=== PATIENT | male | born 1960 | race African-American/Black ===

== ENCOUNTER 2021-11-09 07:20 | Emergency (ER) | payer BC ==
[2021-11-09] MEDS ORDERED: Ondansetron 4 MG Tab.DIS PO ONE (07:45)
[2021-11-09] MEDS ORDERED: Ketorolac 30 MG/ML SDV IM ONE (07:46)
[2021-11-09] MEDS ORDERED: Ondansetron 4 MG/2 ML SDV IVPUSH ONE (07:55)
[2021-11-09] MEDS ORDERED: Ketorolac 30 MG/ML SDV IVPUSH ONE (07:55)
[2021-11-09] MEDS ORDERED: Dextrose 5%-Lactated Ringers 1,000 ML IV SCH (08:00)
[2021-11-09 08:41] LABS: BLOOD UREA NITROGEN,BUN 13 mg/dL (7.0-18.0); CHLORIDE,CL 96 mmol/L (98-107); GLUCOSE RANDOM 138 mg/dL (74-106); LIPASE 160 U/L (73-393); POTASSIUM,K 3.8 mmol/L (3.5-5.1); SODIUM,NA 131 mmol/L (136-148)
[2021-11-09 10:29] VITALS: BP 116/74; PULSE 72
== END 2021-11-09 10:21 | disposition home or self-care (01) ==
LOC: MW.ED 07:20
DX: U07.1 COVID-19 (principal); J12.82 Pneumonia due to coronavirus disease 2019; E66.9 Obesity, unspecified; Z68.33 Body mass index [BMI] 33.0-33.9, adult
CPT/HCPCS: 36415; 71045; 80053; 83690; 84484; 85025; 87635; 93005; 96361; 96374; 96375; 99284; J1885; J2405; J7121; U0002

== ENCOUNTER 2021-11-09 23:09 | Inpatient (IN) | payer BC ==
[2021-11-09] MEDS ORDERED: Dexamethasone 10 MG/ML SDV IVPUSH SCH (23:45)
[2021-11-09] MEDS ORDERED: Acetaminophen 500 MG Tab PO ONE (23:56)
[2021-11-10 01:01] LABS: BLOOD UREA NITROGEN,BUN 10 mg/dL (7.0-18.0); CARBON DIOXIDE,CO2 27.5 mmol/L (21.0-32.0); CHLORIDE,CL 95 mmol/L (98-107); GLUCOSE RANDOM 129 mg/dL (74-106); POTASSIUM,K 3.9 mmol/L (3.5-5.1); SODIUM,NA 130 mmol/L (136-148)
[2021-11-10] MEDS: REMDESIVIR 200 MG in Sodium Chloride 0.9% 250 ML IV ONE ×2 (01:11→01:47)
[2021-11-10] MEDS ORDERED: Enoxaparin 40 MG/0.4 ML Syringe SUBCUT SCH (02:15)
[2021-11-10] MEDS ORDERED: Sodium Chloride 0.9% 1,000 ML IV SCH ×2 (03:00→19:45)
[2021-11-10] MEDS: Benzonatate 100 MG Cap PO PRN ×2 (05:18→12:39)
[2021-11-10 08:15] LABS: BLOOD UREA NITROGEN,BUN 11 mg/dL (7.0-18.0); CARBON DIOXIDE,CO2 28.7 mmol/L (21.0-32.0); CHLORIDE,CL 98 mmol/L (98-107); GLUCOSE RANDOM 177 mg/dL (74-106); SODIUM,NA 136 mmol/L (136-148)
[2021-11-10] MEDS: Enoxaparin 40 MG/0.4 ML Syringe SUBCUT SCH (08:27)
[2021-11-10] MEDS ORDERED: REMDESIVIR 100 MG in Sodium Chloride 0.9% 100 ML IV SCH (09:00)
[2021-11-10] MEDS ORDERED: Sodium Chloride 0.9% 1,000 ML IV ONE (10:01)
[2021-11-10] MEDS: Sodium Chloride 0.9% 1,000 ML IV SCH ×2 (12:38→19:15)
[2021-11-10] MEDS: Dexamethasone 4 MG Tab PO SCH (12:39)
[2021-11-10] MEDS: Albuterol/Ipratropium 4 GM Inhalation Spray INH PRN (16:08)
[2021-11-10] MEDS: Codeine/guaiFENesin 10-100 MG/5 ML Syrup 5 ML Cup PO PRN (18:14)
[2021-11-10] MEDS: REMDESIVIR 100 MG in Sodium Chloride 0.9% 100 ML IV SCH (20:21)
[2021-11-11 07:10] LABS: BLOOD UREA NITROGEN,BUN 13 mg/dL (7.0-18.0); CARBON DIOXIDE,CO2 25.3 mmol/L (21.0-32.0); CHLORIDE,CL 102 mmol/L (98-107); GLUCOSE RANDOM 131 mg/dL (74-106); POTASSIUM,K 3.9 mmol/L (3.5-5.1); SODIUM,NA 138 mmol/L (136-148)
[2021-11-11] MEDS: Enoxaparin 40 MG/0.4 ML Syringe SUBCUT SCH (08:05)
[2021-11-11] MEDS: Dexamethasone 4 MG Tab PO SCH (08:06)
[2021-11-11] MEDS ORDERED: Furosemide 40 MG/4 ML VIAL IVPUSH ONE (08:45)
[2021-11-11] MEDS: Sodium Chloride 0.9% 1,000 ML IV SCH ×2 (10:11→22:33)
[2021-11-11] MEDS ORDERED: Iopamidol 755 MG/ML 500 ML Multipack Bottle IVPUSH STA (13:57)
[2021-11-11] MEDS: REMDESIVIR 100 MG in Sodium Chloride 0.9% 100 ML IV SCH (20:49)
[2021-11-11] MEDS ORDERED: Acetaminophen 325 MG Tab PO PRN (21:23)
[2021-11-12 07:38] LABS: BLOOD UREA NITROGEN,BUN 14 mg/dL (7.0-18.0); CARBON DIOXIDE,CO2 26.3 mmol/L (21.0-32.0); CHLORIDE,CL 101 mmol/L (98-107); GLUCOSE RANDOM 134 mg/dL (74-106); POTASSIUM,K 3.5 mmol/L (3.5-5.1); SODIUM,NA 136 mmol/L (136-148)
[2021-11-12] MEDS: Enoxaparin 40 MG/0.4 ML Syringe SUBCUT SCH (08:19)
[2021-11-12] MEDS: Dexamethasone 4 MG Tab PO SCH (08:19)
[2021-11-12] MEDS: Pantoprazole 40 MG Tab.CR PO SCH (08:20)
[2021-11-12] MEDS: Sodium Chloride 0.9% 1,000 ML IV SCH (08:26)
[2021-11-12] MEDS: Ondansetron 4 MG/2 ML SDV IVPUSH PRN (08:31)
[2021-11-12] MEDS ORDERED: Furosemide 40 MG/4 ML VIAL IVPUSH ONE (11:16)
[2021-11-12] MEDS: REMDESIVIR 100 MG in Sodium Chloride 0.9% 100 ML IV SCH (20:17)
[2021-11-12] MEDS: Codeine/guaiFENesin 10-100 MG/5 ML Syrup 5 ML Cup PO PRN (20:20)
[2021-11-12] MEDS: Albuterol/Ipratropium 4 GM Inhalation Spray INH PRN (20:20)
[2021-11-13] MEDS: Ondansetron 4 MG/2 ML SDV IVPUSH PRN ×2 (03:22→09:00)
[2021-11-13] MEDS: Pantoprazole 40 MG Tab.CR PO SCH (06:33)
[2021-11-13] MEDS ORDERED: Promethazine 25 MG/ML SDV IM PRN (09:01)
[2021-11-13] MEDS: Enoxaparin 40 MG/0.4 ML Syringe SUBCUT SCH (09:16)
[2021-11-13 09:17] LABS: BLOOD UREA NITROGEN,BUN 16 mg/dL (7.0-18.0); CARBON DIOXIDE,CO2 31.3 mmol/L (21.0-32.0); CHLORIDE,CL 101 mmol/L (98-107); GLUCOSE RANDOM 122 mg/dL (74-106); POTASSIUM,K 3.7 mmol/L (3.5-5.1); SODIUM,NA 139 mmol/L (136-148)
[2021-11-13] MEDS: Dexamethasone 4 MG Tab PO SCH (09:17)
[2021-11-13] MEDS ORDERED: Furosemide 40 MG/4 ML VIAL IVPUSH ONE (11:00)
[2021-11-13] MEDS: Prochlorperazine 10 MG/2 ML SDV IVPUSH PRN (11:03)
[2021-11-13] MEDS: REMDESIVIR 100 MG in Sodium Chloride 0.9% 100 ML IV SCH (20:10)
[2021-11-13] MEDS: Albuterol/Ipratropium 4 GM Inhalation Spray INH PRN (20:29)
[2021-11-14] MEDS: Albuterol/Ipratropium 4 GM Inhalation Spray INH PRN ×3 (03:00→20:00)
[2021-11-14] MEDS: Pantoprazole 40 MG Tab.CR PO SCH (06:39)
[2021-11-14 07:41] LABS: BLOOD UREA NITROGEN,BUN 17 mg/dL (7.0-18.0); CARBON DIOXIDE,CO2 30.1 mmol/L (21.0-32.0); CHLORIDE,CL 98 mmol/L (98-107); GLUCOSE RANDOM 112 mg/dL (74-106); POTASSIUM,K 3.6 mmol/L (3.5-5.1); SODIUM,NA 138 mmol/L (136-148)
[2021-11-14] MEDS: Dexamethasone 4 MG Tab PO SCH (08:24)
[2021-11-14] MEDS: Enoxaparin 40 MG/0.4 ML Syringe SUBCUT SCH (08:24)
[2021-11-14] MEDS ORDERED: Aloe Vera/Sodium Chloride Gel 14.1 GM Tube NAS PRN (10:12)
[2021-11-15] MEDS: Albuterol/Ipratropium 4 GM Inhalation Spray INH PRN ×2 (02:03→09:52)
[2021-11-15] MEDS: Pantoprazole 40 MG Tab.CR PO SCH (06:40)
[2021-11-15] MEDS: Enoxaparin 40 MG/0.4 ML Syringe SUBCUT SCH (08:37)
[2021-11-15] MEDS: Dexamethasone 4 MG Tab PO SCH (08:37)
[2021-11-15 09:10] LABS: BLOOD UREA NITROGEN,BUN 18 mg/dL (7.0-18.0); CARBON DIOXIDE,CO2 29.3 mmol/L (21.0-32.0); CHLORIDE,CL 98 mmol/L (98-107); GLUCOSE RANDOM 120 mg/dL (74-106); POTASSIUM,K 3.7 mmol/L (3.5-5.1); SODIUM,NA 137 mmol/L (136-148)
[2021-11-15] MEDS ORDERED: Furosemide 40 MG/4 ML VIAL IVPUSH ONE (10:59)
[2021-11-15] MEDS ORDERED: LORazepam 2 MG/ML SDV IVPUSH ONE (11:14)
[2021-11-15] MEDS: Albuterol/Ipratropium 3.0-0.5 MG/3 ML Neb Soln NEB SCH ×3 (13:05→21:27)
[2021-11-16] MEDS: Albuterol/Ipratropium 3.0-0.5 MG/3 ML Neb Soln NEB SCH ×6 (02:05→21:30)
[2021-11-16 08:00] LABS: BLOOD UREA NITROGEN,BUN 20 mg/dL (7.0-18.0); CARBON DIOXIDE,CO2 32.7 mmol/L (21.0-32.0); CHLORIDE,CL 98 mmol/L (98-107); GLUCOSE RANDOM 133 mg/dL (74-106); POTASSIUM,K 3.6 mmol/L (3.5-5.1); SODIUM,NA 137 mmol/L (136-148)
[2021-11-16] MEDS: Enoxaparin 40 MG/0.4 ML Syringe SUBCUT SCH (08:07)
[2021-11-16] MEDS: Dexamethasone 4 MG Tab PO SCH (08:07)
[2021-11-16] MEDS: Pantoprazole 40 MG Tab.CR PO SCH (08:09)
[2021-11-16] MEDS ORDERED: Furosemide 40 MG/4 ML VIAL IVPUSH ONE (16:01)
[2021-11-16] MEDS ORDERED: Potassium Chloride 20 MEQ Tab.ER PO ONE (18:03)
[2021-11-17] MEDS: Albuterol/Ipratropium 3.0-0.5 MG/3 ML Neb Soln NEB SCH ×6 (01:01→21:45)
[2021-11-17 06:56] LABS: BLOOD UREA NITROGEN,BUN 24 mg/dL (7.0-18.0); CHLORIDE,CL 99 mmol/L (98-107); GLUCOSE RANDOM 141 mg/dL (74-106); SODIUM,NA 134 mmol/L (136-148)
[2021-11-17] MEDS: Dexamethasone 4 MG Tab PO SCH (08:05)
[2021-11-17] MEDS: Enoxaparin 40 MG/0.4 ML Syringe SUBCUT SCH (08:05)
[2021-11-17] MEDS: Pantoprazole 40 MG Tab.CR PO SCH (08:05)
[2021-11-17] MEDS: Levofloxacin/Dextrose 5%-Water 750 MG in Premix Bag 1 BAG IV SCH (08:06)
[2021-11-17] MEDS ORDERED: Polyethylene Glycol 3350 Powder 17 GM Packet PO PRN (12:25)
[2021-11-17] MEDS: Calcium Carbonate 500 MG Tab.Chew PO PRN (20:17)
[2021-11-17] MEDS ORDERED: Bisacodyl 10 MG Supp RECTAL ONE (20:30)
[2021-11-17] MEDS: Prochlorperazine 10 MG/2 ML SDV IVPUSH PRN (21:44)
[2021-11-17] MEDS: Morphine 2 MG/ML SYRINGE IVPUSH PRN (22:10)
[2021-11-17] MEDS: Sodium Chloride 0.65% Nasal Spray 45 ML Bottle NAS PRN (23:05)
[2021-11-18] MEDS: Morphine 2 MG/ML SYRINGE IVPUSH PRN (01:13)
[2021-11-18] MEDS: Albuterol/Ipratropium 3.0-0.5 MG/3 ML Neb Soln NEB SCH ×6 (01:36→21:04)
[2021-11-18] MEDS: Sodium Chloride 0.65% Nasal Spray 45 ML Bottle NAS PRN ×2 (05:45→16:00)
[2021-11-18] MEDS: Pantoprazole 40 MG Tab.CR PO SCH (06:30)
[2021-11-18 08:03] LABS: BLOOD UREA NITROGEN,BUN 21 mg/dL (7.0-18.0); CARBON DIOXIDE,CO2 31.6 mmol/L (21.0-32.0); CHLORIDE,CL 97 mmol/L (98-107); GLUCOSE RANDOM 141 mg/dL (74-106); POTASSIUM,K 4.6 mmol/L (3.5-5.1); SODIUM,NA 137 mmol/L (136-148)
[2021-11-18] MEDS: Levofloxacin/Dextrose 5%-Water 750 MG in Premix Bag 1 BAG IV SCH (08:31)
[2021-11-18] MEDS: Enoxaparin 40 MG/0.4 ML Syringe SUBCUT SCH (08:33)
[2021-11-18] MEDS: Dexamethasone 4 MG Tab PO SCH (08:33)
[2021-11-18] MEDS: Benzonatate 100 MG Cap PO PRN ×3 (09:05→21:04)
[2021-11-18] MEDS ORDERED: Bisacodyl 10 MG Supp RECTAL PRN (09:15)
[2021-11-18] MEDS ORDERED: Furosemide 40 MG/4 ML VIAL IVPUSH ONE (09:22)
[2021-11-18] MEDS ORDERED: Magnesium Citrate Solution 296 ML Bottle PO ONE (13:15)
[2021-11-18] MEDS: Codeine/guaiFENesin 10-100 MG/5 ML Syrup 5 ML Cup PO PRN (18:00)
[2021-11-18] MEDS: Calcium Carbonate 500 MG Tab.Chew PO PRN (20:09)
[2021-11-19] MEDS: Codeine/guaiFENesin 10-100 MG/5 ML Syrup 5 ML Cup PO PRN ×2 (00:18→06:15)
[2021-11-19] MEDS: Albuterol/Ipratropium 3.0-0.5 MG/3 ML Neb Soln NEB SCH ×6 (01:00→20:59)
[2021-11-19] MEDS: Benzonatate 100 MG Cap PO PRN ×4 (03:17→21:00)
[2021-11-19] MEDS: Pantoprazole 40 MG Tab.CR PO SCH (06:31)
[2021-11-19 07:07] LABS: BLOOD UREA NITROGEN,BUN 24 mg/dL (7.0-18.0); CARBON DIOXIDE,CO2 31.7 mmol/L (21.0-32.0); CHLORIDE,CL 99 mmol/L (98-107); GLUCOSE RANDOM 117 mg/dL (74-106); POTASSIUM,K 4.5 mmol/L (3.5-5.1); SODIUM,NA 136 mmol/L (136-148)
[2021-11-19] MEDS: Sodium Chloride 0.65% Nasal Spray 45 ML Bottle NAS PRN ×2 (07:08→13:20)
[2021-11-19] MEDS: Docusate Sodium 100 MG Cap PO SCH (08:20)
[2021-11-19] MEDS: Levofloxacin/Dextrose 5%-Water 750 MG in Premix Bag 1 BAG IV SCH (08:20)
[2021-11-19] MEDS: Dexamethasone 4 MG Tab PO SCH (08:20)
[2021-11-19] MEDS: Enoxaparin 40 MG/0.4 ML Syringe SUBCUT SCH (08:20)
[2021-11-19] MEDS ORDERED: Furosemide 40 MG/4 ML VIAL IVPUSH ONE (08:42)
[2021-11-19] MEDS: Calcium Carbonate 500 MG Tab.Chew PO PRN (22:06)
[2021-11-20] MEDS: Albuterol/Ipratropium 3.0-0.5 MG/3 ML Neb Soln NEB SCH ×6 (01:31→21:21)
[2021-11-20] MEDS: Benzonatate 100 MG Cap PO PRN ×2 (06:21→13:04)
[2021-11-20] MEDS: Pantoprazole 40 MG Tab.CR PO SCH (06:38)
[2021-11-20 07:38] LABS: BLOOD UREA NITROGEN,BUN 25 mg/dL (7.0-18.0); CARBON DIOXIDE,CO2 32.1 mmol/L (21.0-32.0); CHLORIDE,CL 100 mmol/L (98-107); GLUCOSE RANDOM 137 mg/dL (74-106); POTASSIUM,K 4.8 mmol/L (3.5-5.1); SODIUM,NA 136 mmol/L (136-148)
[2021-11-20] MEDS: Enoxaparin 40 MG/0.4 ML Syringe SUBCUT SCH (09:06)
[2021-11-20] MEDS: Levofloxacin/Dextrose 5%-Water 750 MG in Premix Bag 1 BAG IV SCH (09:06)
[2021-11-20] MEDS: Docusate Sodium 100 MG Cap PO SCH (09:07)
[2021-11-20] MEDS: Calcium Carbonate 500 MG Tab.Chew PO PRN (19:42)
[2021-11-21] MEDS: Albuterol/Ipratropium 3.0-0.5 MG/3 ML Neb Soln NEB SCH ×6 (02:01→21:25)
[2021-11-21] MEDS: Pantoprazole 40 MG Tab.CR PO SCH (06:30)
[2021-11-21 06:54] LABS: BLOOD UREA NITROGEN,BUN 22 mg/dL (7.0-18.0); CARBON DIOXIDE,CO2 28.8 mmol/L (21.0-32.0); CHLORIDE,CL 100 mmol/L (98-107); GLUCOSE RANDOM 128 mg/dL (74-106); POTASSIUM,K 4.6 mmol/L (3.5-5.1); SODIUM,NA 135 mmol/L (136-148)
[2021-11-21] MEDS: Docusate Sodium 100 MG Cap PO SCH (09:03)
[2021-11-21] MEDS: Levofloxacin/Dextrose 5%-Water 750 MG in Premix Bag 1 BAG IV SCH (09:05)
[2021-11-21] MEDS: Enoxaparin 40 MG/0.4 ML Syringe SUBCUT SCH (09:16)
[2021-11-21] MEDS: Calcium Carbonate 500 MG Tab.Chew PO PRN (17:28)
[2021-11-21] MEDS: Benzonatate 100 MG Cap PO PRN (19:45)
[2021-11-22] MEDS: Albuterol/Ipratropium 3.0-0.5 MG/3 ML Neb Soln NEB SCH ×6 (02:49→22:16)
[2021-11-22] MEDS: Pantoprazole 40 MG Tab.CR PO SCH (06:33)
[2021-11-22 06:46] LABS: BLOOD UREA NITROGEN,BUN 18 mg/dL (7.0-18.0); CARBON DIOXIDE,CO2 28.3 mmol/L (21.0-32.0); CHLORIDE,CL 99 mmol/L (98-107); GLUCOSE RANDOM 140 mg/dL (74-106); POTASSIUM,K 4.7 mmol/L (3.5-5.1); SODIUM,NA 135 mmol/L (136-148)
[2021-11-22] MEDS: Docusate Sodium 100 MG Cap PO SCH (08:22)
[2021-11-22] MEDS: Enoxaparin 40 MG/0.4 ML Syringe SUBCUT SCH (08:23)
[2021-11-22] MEDS: Levofloxacin/Dextrose 5%-Water 750 MG in Premix Bag 1 BAG IV SCH (08:23)
[2021-11-22] MEDS ORDERED: Furosemide 40 MG/4 ML VIAL IVPUSH ONE (09:55)
[2021-11-22] MEDS: Benzonatate 100 MG Cap PO PRN ×2 (10:43→16:41)
[2021-11-22] MEDS: Codeine/guaiFENesin 10-100 MG/5 ML Syrup 5 ML Cup PO PRN ×2 (14:07→19:52)
[2021-11-23] MEDS: Albuterol/Ipratropium 3.0-0.5 MG/3 ML Neb Soln NEB SCH ×6 (02:19→21:59)
[2021-11-23] MEDS: Benzonatate 100 MG Cap PO PRN ×3 (05:32→21:09)
[2021-11-23] MEDS: Pantoprazole 40 MG Tab.CR PO SCH (06:57)
[2021-11-23 07:58] LABS: BLOOD UREA NITROGEN,BUN 19 mg/dL (7.0-18.0); CHLORIDE,CL 98 mmol/L (98-107); GLUCOSE RANDOM 125 mg/dL (74-106); POTASSIUM,K 4.4 mmol/L (3.5-5.1); SODIUM,NA 136 mmol/L (136-148)
[2021-11-23] MEDS: Docusate Sodium 100 MG Cap PO SCH (08:46)
[2021-11-23] MEDS: Codeine/guaiFENesin 10-100 MG/5 ML Syrup 5 ML Cup PO PRN (08:46)
[2021-11-23] MEDS: Levofloxacin/Dextrose 5%-Water 750 MG in Premix Bag 1 BAG IV SCH (08:46)
[2021-11-23] MEDS: Enoxaparin 40 MG/0.4 ML Syringe SUBCUT SCH (08:47)
[2021-11-23] MEDS: Cyclobenzaprine 10 MG Tab PO PRN (10:36)
[2021-11-24] MEDS: Albuterol/Ipratropium 3.0-0.5 MG/3 ML Neb Soln NEB SCH ×6 (02:13→22:09)
[2021-11-24] MEDS: Pantoprazole 40 MG Tab.CR PO SCH (06:48)
[2021-11-24 07:44] LABS: BLOOD UREA NITROGEN,BUN 17 mg/dL (7.0-18.0); CHLORIDE,CL 98 mmol/L (98-107); GLUCOSE RANDOM 126 mg/dL (74-106); POTASSIUM,K 4.7 mmol/L (3.5-5.1); SODIUM,NA 135 mmol/L (136-148)
[2021-11-24] MEDS: Benzonatate 100 MG Cap PO PRN ×2 (08:09→14:33)
[2021-11-24] MEDS: Docusate Sodium 100 MG Cap PO SCH (08:09)
[2021-11-24] MEDS: Levofloxacin/Dextrose 5%-Water 750 MG in Premix Bag 1 BAG IV SCH (08:10)
[2021-11-24] MEDS: Enoxaparin 40 MG/0.4 ML Syringe SUBCUT SCH (08:10)
[2021-11-24] MEDS: Codeine/guaiFENesin 10-100 MG/5 ML Syrup 5 ML Cup PO PRN (11:46)
[2021-11-25] MEDS ORDERED: Sodium Chloride 0.65% Nasal Spray 45 ML Bottle NAS PRN (00:24)
[2021-11-25] MEDS: Albuterol/Ipratropium 3.0-0.5 MG/3 ML Neb Soln NEB SCH ×6 (01:58→21:02)
[2021-11-25 06:17] LABS: BLOOD UREA NITROGEN,BUN 18 mg/dL (7.0-18.0); CARBON DIOXIDE,CO2 25.7 mmol/L (21.0-32.0); CHLORIDE,CL 100 mmol/L (98-107); GLUCOSE RANDOM 130 mg/dL (74-106); POTASSIUM,K 4.6 mmol/L (3.5-5.1); SODIUM,NA 134 mmol/L (136-148)
[2021-11-25] MEDS: Pantoprazole 40 MG Tab.CR PO SCH ×2 (06:28→06:53)
[2021-11-25] MEDS: Enoxaparin 40 MG/0.4 ML Syringe SUBCUT SCH (08:26)
[2021-11-25] MEDS: Docusate Sodium 100 MG Cap PO SCH (08:27)
[2021-11-25] MEDS: Levofloxacin/Dextrose 5%-Water 750 MG in Premix Bag 1 BAG IV SCH (08:52)
[2021-11-25] MEDS: Benzonatate 100 MG Cap PO PRN ×2 (10:58→21:00)
[2021-11-25] MEDS: Calcium Carbonate 500 MG Tab.Chew PO PRN (20:36)
[2021-11-26] MEDS: Albuterol/Ipratropium 3.0-0.5 MG/3 ML Neb Soln NEB SCH ×7 (01:03→22:06)
[2021-11-26] MEDS: Benzonatate 100 MG Cap PO PRN (05:28)
[2021-11-26] MEDS: Pantoprazole 40 MG Tab.CR PO SCH (06:30)
[2021-11-26 07:04] LABS: BLOOD UREA NITROGEN,BUN 12 mg/dL (7.0-18.0); CARBON DIOXIDE,CO2 27.8 mmol/L (21.0-32.0); CHLORIDE,CL 99 mmol/L (98-107); GLUCOSE RANDOM 130 mg/dL (74-106); POTASSIUM,K 4.6 mmol/L (3.5-5.1); SODIUM,NA 134 mmol/L (136-148)
[2021-11-26] MEDS: Docusate Sodium 100 MG Cap PO SCH (08:32)
[2021-11-26] MEDS: Enoxaparin 40 MG/0.4 ML Syringe SUBCUT SCH (08:33)
[2021-11-26] MEDS: Cyclobenzaprine 10 MG Tab PO PRN (10:52)
[2021-11-27] MEDS: Albuterol/Ipratropium 3.0-0.5 MG/3 ML Neb Soln NEB SCH ×6 (02:17→21:15)
[2021-11-27] MEDS: Pantoprazole 40 MG Tab.CR PO SCH (06:36)
[2021-11-27] MEDS: Codeine/guaiFENesin 10-100 MG/5 ML Syrup 5 ML Cup PO PRN ×2 (09:32→18:45)
[2021-11-27] MEDS: Docusate Sodium 100 MG Cap PO SCH (09:55)
[2021-11-27] MEDS: Enoxaparin 40 MG/0.4 ML Syringe SUBCUT SCH (09:55)
[2021-11-27] MEDS: Cyclobenzaprine 10 MG Tab PO PRN (11:14)
[2021-11-27] MEDS ORDERED: LORazepam 0.5 MG Tab PO PRN (11:16)
[2021-11-27] MEDS: Benzonatate 100 MG Cap PO PRN ×2 (11:33→21:54)
[2021-11-27] MEDS: Ondansetron 4 MG/2 ML SDV IVPUSH PRN (18:45)
[2021-11-28] MEDS: Albuterol/Ipratropium 3.0-0.5 MG/3 ML Neb Soln NEB SCH ×6 (01:56→21:00)
[2021-11-28] MEDS: Pantoprazole 40 MG Tab.CR PO SCH (06:56)
[2021-11-28] MEDS: Benzonatate 100 MG Cap PO PRN (10:19)
[2021-11-28] MEDS: Enoxaparin 40 MG/0.4 ML Syringe SUBCUT SCH (10:19)
[2021-11-28] MEDS: Docusate Sodium 100 MG Cap PO SCH (10:19)
[2021-11-28] MEDS ORDERED: Furosemide 20 MG/2 ML VIAL IVPUSH ONE (11:00)
[2021-11-28] MEDS: Codeine/guaiFENesin 10-100 MG/5 ML Syrup 5 ML Cup PO PRN ×2 (12:58→20:53)
[2021-11-28] MEDS: LORazepam 0.5 MG Tab PO PRN (20:54)
[2021-11-28] MEDS: Calcium Carbonate 500 MG Tab.Chew PO PRN (20:54)
[2021-11-28] MEDS: Cyclobenzaprine 10 MG Tab PO PRN (21:20)
[2021-11-29] MEDS: Albuterol/Ipratropium 3.0-0.5 MG/3 ML Neb Soln NEB SCH ×7 (02:20→21:34)
[2021-11-29 06:17] LABS: BLOOD UREA NITROGEN,BUN 14 mg/dL (7.0-18.0); CARBON DIOXIDE,CO2 26.2 mmol/L (21.0-32.0); CHLORIDE,CL 96 mmol/L (98-107); GLUCOSE RANDOM 138 mg/dL (74-106); POTASSIUM,K 4.5 mmol/L (3.5-5.1); SODIUM,NA 132 mmol/L (136-148)
[2021-11-29] MEDS: Pantoprazole 40 MG Tab.CR PO SCH (06:35)
[2021-11-29] MEDS: Enoxaparin 40 MG/0.4 ML Syringe SUBCUT SCH (10:03)
[2021-11-29] MEDS: Codeine/Promethazine 10-6.25 MG/5 ML Syrup 5 ML UD Syringe PO PRN ×2 (10:08→19:37)
[2021-11-29] MEDS: Docusate Sodium 100 MG Cap PO SCH (10:09)
[2021-11-29] MEDS: Apixaban 5 MG Tab PO SCH ×2 (10:25→21:35)
[2021-11-29] MEDS: Cyclobenzaprine 10 MG Tab PO PRN (11:19)
[2021-11-29] MEDS: LORazepam 0.5 MG Tab PO PRN ×2 (11:42→19:36)
[2021-11-29] MEDS ORDERED: Iopamidol 755 MG/ML 500 ML Multipack Bottle IVPUSH ONE (13:03)
[2021-11-30] MEDS: Albuterol/Ipratropium 3.0-0.5 MG/3 ML Neb Soln NEB SCH ×6 (01:30→21:04)
[2021-11-30 06:51] LABS: BLOOD UREA NITROGEN,BUN 9 mg/dL (7.0-18.0); CARBON DIOXIDE,CO2 29.4 mmol/L (21.0-32.0); CHLORIDE,CL 94 mmol/L (98-107); GLUCOSE RANDOM 128 mg/dL (74-106); POTASSIUM,K 4.9 mmol/L (3.5-5.1); SODIUM,NA 131 mmol/L (136-148)
[2021-11-30] MEDS: Pantoprazole 40 MG Tab.CR PO SCH (06:51)
[2021-11-30] MEDS: Codeine/Promethazine 10-6.25 MG/5 ML Syrup 5 ML UD Syringe PO PRN ×3 (09:02→20:05)
[2021-11-30] MEDS: Docusate Sodium 100 MG Cap PO SCH (09:02)
[2021-11-30] MEDS: Apixaban 5 MG Tab PO SCH ×2 (09:02→20:05)
[2021-11-30] MEDS: LORazepam 0.5 MG Tab PO PRN ×2 (09:57→20:28)
[2021-11-30] MEDS: Benzonatate 100 MG Cap PO PRN ×2 (17:07→23:29)
[2021-11-30] MEDS ORDERED: guaiFENesin 100 MG/5 ML Soln 10 ML UD Cup PO PRN (23:55)
[2021-12-01] MEDS: Albuterol/Ipratropium 3.0-0.5 MG/3 ML Neb Soln NEB SCH ×6 (01:34→21:10)
[2021-12-01] MEDS: Codeine/Promethazine 10-6.25 MG/5 ML Syrup 5 ML UD Syringe PO PRN ×4 (03:30→23:38)
[2021-12-01] MEDS: Benzonatate 100 MG Cap PO PRN ×3 (05:20→19:52)
[2021-12-01 06:16] LABS: BLOOD UREA NITROGEN,BUN 13 mg/dL (7.0-18.0); CARBON DIOXIDE,CO2 28.7 mmol/L (21.0-32.0); CHLORIDE,CL 92 mmol/L (98-107); GLUCOSE RANDOM 141 mg/dL (74-106); POTASSIUM,K 5.4 mmol/L (3.5-5.1); SODIUM,NA 131 mmol/L (136-148)
[2021-12-01] MEDS: Pantoprazole 40 MG Tab.CR PO SCH (06:43)
[2021-12-01] MEDS: Apixaban 5 MG Tab PO SCH ×2 (08:58→20:23)
[2021-12-01] MEDS: Docusate Sodium 100 MG Cap PO SCH (08:58)
[2021-12-01] MEDS ORDERED: Furosemide 20 MG/2 ML VIAL IVPUSH ONE (10:06)
[2021-12-01] MEDS: methylPREDNISolone Sodium Succinate 40 MG/1 ML SDV IVPUSH SCH ×2 (10:43→18:06)
[2021-12-01] MEDS ORDERED: LORazepam 2 MG/ML SDV IVPUSH PRN (15:19)
[2021-12-02] MEDS: Albuterol/Ipratropium 3.0-0.5 MG/3 ML Neb Soln NEB SCH ×3 (02:03→10:25)
[2021-12-02] MEDS: methylPREDNISolone Sodium Succinate 40 MG/1 ML SDV IVPUSH SCH ×2 (02:03→10:25)
[2021-12-02 06:10] LABS: BLOOD UREA NITROGEN,BUN 27 mg/dL (7.0-18.0); CHLORIDE,CL 95 mmol/L (98-107); GLUCOSE RANDOM 242 mg/dL (74-106); POTASSIUM,K 5.1 mmol/L (3.5-5.1); SODIUM,NA 130 mmol/L (136-148)
[2021-12-02] MEDS: Codeine/Promethazine 10-6.25 MG/5 ML Syrup 5 ML UD Syringe PO PRN (08:07)
[2021-12-02] MEDS: Benzonatate 100 MG Cap PO PRN (08:07)
[2021-12-02] MEDS: Pantoprazole 40 MG Tab.CR PO SCH (08:08)
[2021-12-02] MEDS: Docusate Sodium 100 MG Cap PO SCH (08:08)
[2021-12-02] MEDS: Apixaban 5 MG Tab PO SCH (08:08)
[2021-12-02] MEDS ORDERED: guaiFENesin 100 MG/5 ML Soln 5 ML UD Cup PO PRN (10:30)
[2021-12-02] MEDS ORDERED: LORazepam 2 MG/ML SDV IVPUSH ONE (10:31)
[2021-12-02] MEDS ORDERED: Glucagon,Human Recombinant 1 MG Vial IM PRN (10:55)
[2021-12-02] MEDS ORDERED: 50% Dextrose in Water 50 ML Syringe IVPUSH PRN (10:55)
[2021-12-02] MEDS ORDERED: Insulin Aspart 100 Units/ML 3 ML Pen SUBCUT SCH (11:30)
[2021-12-02] MEDS ORDERED: propofoL 100 ML ONE (11:48)
[2021-12-02] MEDS ORDERED: fentaNYL/Normal Saline 2,500 MCG in Premix Bag 1 BAG IV PRN (11:49)
[2021-12-02] MEDS ORDERED: propofoL 100 ML IV SCH (12:00)
[2021-12-02 15:10] VITALS: BP 107/58; PULSE 80
[2021-12-06] MEDS ORDERED: Apixaban 5 MG Tab PO SCH (09:00)
== END 2021-12-02 14:20 | DRG 137 ==
LOC: MW.ED 23:09 → INTOOBSV 23:57 → MW.MS 23:57 → MW.ICU 11-12 12:15 → MW.MS 11-20 16:09 → OBSVTOIN 11-30 15:00 → MW.ICU 11-30 15:27
PROVIDERS: ADMIT Internal Medicine; ATTEND Internal Medicine
PROC: 8E0ZXY6 Isolation (ICD-10-PCS; 2021-11-30)
PROC: 02HV33Z Insertion of Infusion Device into Superior Vena Cava, Percutaneous Approach (ICD-10-PCS; principal; 2021-12-02)
PROC: 03HY32Z Insertion of Monitoring Device into Upper Artery, Percutaneous Approach (ICD-10-PCS; 2021-12-02)
PROC: 4A133B1 Monitoring of Arterial Pressure, Peripheral, Percutaneous Approach (ICD-10-PCS; 2021-12-02)
PROC: 4A133J1 Monitoring of Arterial Pulse, Peripheral, Percutaneous Approach (ICD-10-PCS; 2021-12-02)
DX: U07.1 COVID-19 (principal); J96.01 Acute respiratory failure with hypoxia; I26.99 Other pulmonary embolism without acute cor pulmonale; F41.9 Anxiety disorder, unspecified; M62.82 Rhabdomyolysis; R00.0 Tachycardia, unspecified; F41.0 Panic disorder [episodic paroxysmal anxiety]; H54.7 Unspecified visual loss; E66.9 Obesity, unspecified; Z86.16 Personal history of COVID-19; J12.82 Pneumonia due to coronavirus disease 2019; N17.9 Acute kidney failure, unspecified; E86.0 Dehydration; M60.80 Other myositis, unspecified site; K59.00 Constipation, unspecified
CPT/HCPCS: 31500; 36415; 36556; 36600; 36620; 51702; 71045; 71045-26; 71275; 71275-26; 74018; 74018-26; 80048; 80053; 82248; 82306; 82550; 82728; 82803; 82947; 83605; 83615; 83735; 83880; 84100; 84145; 84484; 85025; 85027; 85379; 85610; 85730; 86140; 93005; 93306; 94002; 94640; 94660; 97110-GP; 97161-GP; 99285-25; A9270-GY; J0248; J0780; J1100; J1650; J1815-GY; J1940; J1956; J2060; J2270; J2405; J2704; J2920; J7030; J7050; J7620-GY; J8540; Q9967

== ENCOUNTER 2021-12-27 13:41 | Observation (INO) | payer BC ==
[2021-12-27] MEDS ORDERED: Sodium Chloride 0.9% 2.5 ML Syringe FLUSH PRN (14:48)
[2021-12-27] MEDS ORDERED: Sodium Chloride 0.9% 10 ML Syringe FLUSH PRN (14:48)
[2021-12-27 15:32] LABS: BLOOD UREA NITROGEN,BUN 15 mg/dL (7.0-18.0); CARBON DIOXIDE,CO2 29.8 mmol/L (21.0-32.0); CHLORIDE,CL 106 mmol/L (98-107); ESTIMATED GFR > 60.0 ml/min; GLUCOSE RANDOM 212 mg/dL (74-106); POTASSIUM,K 3.3 mmol/L (3.5-5.1); SODIUM,NA 144 mmol/L (136-148)
[2021-12-27] MEDS ORDERED: Iopamidol 755 MG/ML 500 ML Multipack Bottle IVPUSH ONE (16:26)
[2021-12-27] MEDS ORDERED: Albuterol/Ipratropium 3.0-0.5 MG/3 ML Neb Soln NEB PRN (20:11)
[2021-12-27] MEDS ORDERED: Ondansetron 4 MG/2 ML SDV IVPUSH PRN (20:11)
[2021-12-27] MEDS ORDERED: Acetaminophen 325 MG Tab PO PRN (20:11)
[2021-12-27] MEDS ORDERED: Potassium Chloride 20 MEQ Tab.ER PO ONE (20:15)
[2021-12-27] MEDS ORDERED: 50% Dextrose in Water 50 ML Syringe IVPUSH PRN ×2 (20:22→22:15)
[2021-12-27] MEDS ORDERED: Glucagon,Human Recombinant 1 MG Vial IM PRN ×2 (20:22→22:15)
[2021-12-27] MEDS ORDERED: Insulin Glargine,Human Rec. Analog 100 Units/ML 3 ML Pen SUBCUT SCH ×2 (21:00→22:15)
[2021-12-27] MEDS ORDERED: Furosemide 40 MG/4 ML VIAL IVPUSH ONE (22:17)
[2021-12-27] MEDS ORDERED: Rivaroxaban 10 MG Tab PO ONE (22:29)
[2021-12-27] MEDS: Codeine/Promethazine 10-6.25 MG/5 ML Syrup 5 ML UD Syringe PO PRN (23:33)
[2021-12-27] MEDS: Pantoprazole 40 MG Tab.CR PO SCH (23:35)
[2021-12-28] MEDS ORDERED: Albuterol 0.083% 2.5 MG/3 ML Neb Soln INH SCH (06:00)
[2021-12-28 06:17] LABS: BLOOD UREA NITROGEN,BUN 17 mg/dL (7.0-18.0); CARBON DIOXIDE,CO2 31.6 mmol/L (21.0-32.0); CHLORIDE,CL 110 mmol/L (98-107); ESTIMATED GFR > 60.0 ml/min; GLUCOSE RANDOM 112 mg/dL (74-106); POTASSIUM,K 3.4 mmol/L (3.5-5.1); SODIUM,NA 149 mmol/L (136-148)
[2021-12-28] MEDS ORDERED: Pantoprazole 40 MG Tab.CR PO SCH (07:30)
[2021-12-28] MEDS: Insulin Aspart 100 Units/ML 3 ML Pen SUBCUT SCH ×2 (07:48→12:59)
[2021-12-28] MEDS: Pantoprazole 40 MG Tab.CR PO SCH (08:15)
[2021-12-28] MEDS: Insulin Glargine,Human Rec. Analog 100 Units/ML 3 ML Pen SUBCUT SCH ×2 (08:16→09:53)
[2021-12-28] MEDS ORDERED: predniSONE 20 MG Tab PO SCH (09:00)
[2021-12-28] MEDS ORDERED: Furosemide 20 MG Tab PO SCH (09:00)
[2021-12-28] MEDS ORDERED: Rivaroxaban 10 MG Tab PO SCH ×2 (09:00→18:00)
[2021-12-28] MEDS ORDERED: Codeine/Promethazine 10-6.25 MG/5 ML Syrup 5 ML UD Syringe PO SCH (09:00)
[2021-12-28] MEDS ORDERED: Magnesium Sulfate/Water 2 GM in Premix Bag 1 BAG IV ONE (09:12)
[2021-12-28] MEDS ORDERED: Potassium Chloride 20 MEQ Tab.ER PO ONE (09:13)
[2021-12-28] MEDS ORDERED: Furosemide 40 MG/4 ML VIAL IVPUSH ONE (09:14)
[2021-12-28] MEDS: Codeine/Promethazine 10-6.25 MG/5 ML Syrup 5 ML UD Syringe PO PRN (13:18)
[2021-12-28 13:19] VITALS: BP 117/79; PULSE 102
== END 2021-12-28 13:40 | disposition home or self-care (01) ==
LOC: MW.ED 13:41 → MW.MS 19:09
PROVIDERS: ADMIT Student in an Organized Health Care Education/Training Program; ATTEND Student in an Organized Health Care Education/Training Program
DX: R77.8 Other specified abnormalities of plasma proteins (principal); E66.9 Obesity, unspecified; F41.9 Anxiety disorder, unspecified; U07.1 COVID-19; I26.99 Other pulmonary embolism without acute cor pulmonale; J96.01 Acute respiratory failure with hypoxia; E87.6 Hypokalemia; Z79.899 Other long term (current) drug therapy
CPT/HCPCS: 36415; 71275; 80048; 80053; 82947; 83735; 83880; 84100; 84484; 85025; 93005; 96374; 96375; 96376; 99285; A9270; G0378; J1815; J1940; J3475; Q9967; 93010; 99217; 99219; 99284; J3490

== ENCOUNTER 2022-08-01 16:21 | Emergency (ER) | payer BC ==
[2022-08-01] MEDS: Sodium Chloride 0.9% 10 ML Syringe FLUSH PRN (18:19)
[2022-08-01] MEDS: Sodium Chloride 0.9% 2.5 ML Syringe FLUSH PRN (18:20)
[2022-08-01 18:55] LABS: BLOOD UREA NITROGEN,BUN 26 mg/dL (7.0-18.0); CARBON DIOXIDE,CO2 25.7 mmol/L (21.0-32.0); CHLORIDE,CL 102 mmol/L (98-107); GLUCOSE RANDOM 330 mg/dL (74-106); POTASSIUM,K 5.7 mmol/L (3.5-5.1); SODIUM,NA 137 mmol/L (136-148)
[2022-08-01 19:11] LABS: ESTIMATED GFR 46 mL/min (>60)
[2022-08-01] MEDS: Iopamidol 755 MG/ML 500 ML Multipack Bottle IVPUSH ONE (20:01)
[2022-08-01] MEDS ORDERED: Rivaroxaban 10 MG Tab PO ONE (21:22)
[2022-08-01] MEDS: Rivaroxaban 15 MG Tab PO STA (22:06)
[2022-08-02 00:48] VITALS: BP 159/97; PULSE 103
== END 2022-08-01 22:14 | disposition home or self-care (01) ==
LOC: MW.ED 16:21
DX: I26.99 Other pulmonary embolism without acute cor pulmonale (principal); N17.9 Acute kidney failure, unspecified; E87.5 Hyperkalemia; E66.9 Obesity, unspecified; Z79.899 Other long term (current) drug therapy; Z79.4 Long term (current) use of insulin; Z86.16 Personal history of COVID-19
CPT/HCPCS: 36415; 71275; 80053; 83880; 84484; 85025; 99284; A9270; J3490; Q9967; 93010; 99285

== ENCOUNTER 2023-02-03 08:28 | Inpatient (IN) | payer BC ==
[2023-02-03] MEDS ORDERED: Sodium Chloride 0.9% 10 ML Syringe FLUSH PRN (08:49)
[2023-02-03] MEDS ORDERED: Sodium Chloride 0.9% 2.5 ML Syringe FLUSH PRN (08:49)
[2023-02-03] MEDS ORDERED: Ibuprofen 600 MG Tab PO ONE (08:50)
[2023-02-03 09:25] LABS: CARBON DIOXIDE,CO2 27.5 mmol/L (21.0-32.0)
[2023-02-03] MEDS ORDERED: cefTRIAXone 1 GM in Sodium Chloride 0.9% 50 ML IV ONE (09:41)
[2023-02-03] MEDS ORDERED: Azithromycin 500 MG in Sodium Chloride 0.9% 250 ML IV SCH (09:45)
[2023-02-03 10:50] LABS: CORONAVIRUS COVID-19 NAA NEGATIVE (NEGATIVE); INFLUENZA A NAA NEGATIVE (NEGATIVE); INFLUENZA B NAA NEGATIVE (NEGATIVE)
[2023-02-03] MEDS ORDERED: Ondansetron 4 MG/2 ML SDV IVPUSH ONE (12:08)
[2023-02-03] MEDS ORDERED: ALBUTEROL 2.5 MG/0.5 ML INH PRN (13:00)
[2023-02-03] MEDS ORDERED: Ondansetron 4 MG Tab.DIS PO PRN (13:00)
[2023-02-03] MEDS ORDERED: Non-Formulary Medication 1 Each (Insulin Glargine,Hum.Rec.Anlog 100 UNIT/ML Insuln.Pen) SUBCUT SCH (13:00)
[2023-02-03] MEDS ORDERED: 50% Dextrose in Water 50 ML Syringe IVPUSH PRN (13:02)
[2023-02-03] MEDS ORDERED: Glucagon,Human Recombinant 1 MG Vial IM PRN (13:02)
[2023-02-03] MEDS ORDERED: Non-Formulary Medication 1 Each (Rivaroxaban [Xarelto] 20 MG Tablet) PO SCH (13:15)
[2023-02-03] MEDS ORDERED: ALBUTEROL 2.5 MG INH SCH (13:15)
[2023-02-03] MEDS ORDERED: Albuterol 0.083% 2.5 MG/3 ML Neb Soln INH SCH (13:30)
[2023-02-03] MEDS: predniSONE 20 MG Tab PO SCH (14:52)
[2023-02-03] MEDS ORDERED: Sodium Chloride 0.65% Nasal Spray 45 ML Bottle NAS PRN (14:54)
[2023-02-03] MEDS: Codeine/Promethazine 10-6.25 MG/5 ML Syrup 5 ML UD Syringe PO SCH ×3 (15:09→23:12)
[2023-02-03] MEDS: Fluticasone NASAL Spray 16 GM Bottle NASBOTH SCH (15:10)
[2023-02-03] MEDS: Insulin Glargine,Hum.Rec.Anlog 100 UNIT/ML 3 ML Pen SUBCUT SCH (15:11)
[2023-02-03] MEDS: Insulin Aspart 100 Units/ML 3 ML Pen SUBCUT SCH (17:05)
[2023-02-03] MEDS: Rivaroxaban 10 MG Tab PO SCH (18:13)
[2023-02-03] MEDS: Albuterol 0.083% 2.5 MG/3 ML Neb Soln INH SCH ×2 (18:32→23:24)
[2023-02-03] MEDS ORDERED: Benzonatate 100 MG Cap ONE (18:36)
[2023-02-03] MEDS: Benzonatate 100 MG Cap PO SCH ×2 (18:38→23:13)
[2023-02-03] MEDS ORDERED: Acetaminophen 325 MG Tab PO PRN (18:41)
[2023-02-03] MEDS: Pantoprazole 40 MG Tab.CR PO SCH (20:27)
[2023-02-03] MEDS: Budesonide 0.5 MG/2 ML Neb Susp NEB SCH (20:28)
[2023-02-03] MEDS: Albuterol/Ipratropium 3.0-0.5 MG/3 ML Neb Soln INH SCH (23:12)
[2023-02-04] MEDS: Codeine/Promethazine 10-6.25 MG/5 ML Syrup 5 ML UD Syringe PO SCH ×6 (03:16→23:40)
[2023-02-04] MEDS: Benzonatate 100 MG Cap PO SCH ×3 (05:34→22:02)
[2023-02-04] MEDS: Albuterol/Ipratropium 3.0-0.5 MG/3 ML Neb Soln INH SCH ×3 (07:14→22:15)
[2023-02-04 07:30] LABS: CARBON DIOXIDE,CO2 31.3 mmol/L (21.0-32.0); POTASSIUM,K 4.2 mmol/L (3.5-5.1)
[2023-02-04] MEDS: Albuterol 0.083% 2.5 MG/3 ML Neb Soln INH SCH ×4 (08:28→23:40)
[2023-02-04] MEDS: cefTRIAXone 1 GM in Sodium Chloride 0.9% 50 ML IV SCH (08:59)
[2023-02-04] MEDS: predniSONE 20 MG Tab PO SCH (09:00)
[2023-02-04] MEDS: Pantoprazole 40 MG Tab.CR PO SCH ×2 (09:00→22:02)
[2023-02-04] MEDS ORDERED: Furosemide 40 MG Tab PO SCH (09:00)
[2023-02-04] MEDS: Sulfamethoxazole/Trimethoprim 800-160 MG Tab PO SCH (09:00)
[2023-02-04] MEDS: Insulin Glargine,Hum.Rec.Anlog 100 UNIT/ML 3 ML Pen SUBCUT SCH (09:01)
[2023-02-04] MEDS: Budesonide 0.5 MG/2 ML Neb Susp NEB SCH ×2 (09:01→22:02)
[2023-02-04] MEDS: Fluticasone NASAL Spray 16 GM Bottle NASBOTH SCH (09:02)
[2023-02-04] MEDS: Azithromycin 500 MG in Sodium Chloride 0.9% 250 ML IV SCH (09:04)
[2023-02-04] MEDS: Insulin Aspart 100 Units/ML 3 ML Pen SUBCUT SCH ×3 (09:10→17:13)
[2023-02-04] MEDS: Rivaroxaban 10 MG Tab PO SCH (17:12)
[2023-02-05] MEDS: Codeine/Promethazine 10-6.25 MG/5 ML Syrup 5 ML UD Syringe PO SCH ×6 (03:20→23:04)
[2023-02-05] MEDS: Benzonatate 100 MG Cap PO SCH ×3 (06:40→23:04)
[2023-02-05] MEDS: Albuterol/Ipratropium 3.0-0.5 MG/3 ML Neb Soln INH SCH ×3 (07:14→23:04)
[2023-02-05] MEDS: Albuterol 0.083% 2.5 MG/3 ML Neb Soln INH SCH ×3 (07:14→18:13)
[2023-02-05 07:33] LABS: CARBON DIOXIDE,CO2 29.8 mmol/L (21.0-32.0); POTASSIUM,K 4.2 mmol/L (3.5-5.1)
[2023-02-05] MEDS: Insulin Aspart 100 Units/ML 3 ML Pen SUBCUT SCH ×3 (07:42→16:57)
[2023-02-05 09:07] LABS: BORDETELLA PARAPERT IS1001 Not Detected (Not Detected)
[2023-02-05] MEDS: Sulfamethoxazole/Trimethoprim 800-160 MG Tab PO SCH (09:12)
[2023-02-05] MEDS: Pantoprazole 40 MG Tab.CR PO SCH ×2 (09:12→20:42)
[2023-02-05] MEDS: predniSONE 20 MG Tab PO SCH (09:13)
[2023-02-05] MEDS: cefTRIAXone 1 GM in Sodium Chloride 0.9% 50 ML IV SCH (09:13)
[2023-02-05] MEDS: Azithromycin 500 MG in Sodium Chloride 0.9% 250 ML IV SCH (09:14)
[2023-02-05] MEDS: Fluticasone NASAL Spray 16 GM Bottle NASBOTH SCH (09:15)
[2023-02-05] MEDS: Insulin Glargine,Hum.Rec.Anlog 100 UNIT/ML 3 ML Pen SUBCUT SCH (09:24)
[2023-02-05] MEDS: Budesonide 0.5 MG/2 ML Neb Susp NEB SCH ×2 (11:47→20:42)
[2023-02-05] MEDS: Rivaroxaban 10 MG Tab PO SCH (16:57)
[2023-02-06] MEDS: Albuterol 0.083% 2.5 MG/3 ML Neb Soln INH SCH ×2 (00:13→06:18)
[2023-02-06] MEDS: Codeine/Promethazine 10-6.25 MG/5 ML Syrup 5 ML UD Syringe PO SCH ×3 (03:54→11:12)
[2023-02-06] MEDS: Benzonatate 100 MG Cap PO SCH (06:06)
[2023-02-06] MEDS: Albuterol/Ipratropium 3.0-0.5 MG/3 ML Neb Soln INH SCH (06:18)
[2023-02-06] MEDS: Insulin Aspart 100 Units/ML 3 ML Pen SUBCUT SCH ×2 (06:30→11:59)
[2023-02-06 06:48] LABS: CARBON DIOXIDE,CO2 29.6 mmol/L (21.0-32.0); POTASSIUM,K 3.8 mmol/L (3.5-5.1)
[2023-02-06] MEDS: Sulfamethoxazole/Trimethoprim 800-160 MG Tab PO SCH (08:41)
[2023-02-06] MEDS: Pantoprazole 40 MG Tab.CR PO SCH (08:41)
[2023-02-06] MEDS: Fluticasone NASAL Spray 16 GM Bottle NASBOTH SCH (08:43)
[2023-02-06] MEDS: Insulin Glargine,Hum.Rec.Anlog 100 UNIT/ML 3 ML Pen SUBCUT SCH (08:44)
[2023-02-06] MEDS: predniSONE 20 MG Tab PO SCH (08:50)
[2023-02-06] MEDS: cefTRIAXone 1 GM in Sodium Chloride 0.9% 50 ML IV SCH (09:01)
[2023-02-06] MEDS: Azithromycin 500 MG in Sodium Chloride 0.9% 250 ML IV SCH (09:38)
[2023-02-06] MEDS: Budesonide 0.5 MG/2 ML Neb Susp NEB SCH (09:48)
[2023-02-06 11:26] VITALS: BP 140/90; PULSE 84
== END 2023-02-06 12:50 | disposition home or self-care (01) | DRG 139 ==
LOC: MW.ED 08:28 → MW.MS 11:54
PROVIDERS: ADMIT Internal Medicine; ATTEND Internal Medicine
DX: J18.9 Pneumonia, unspecified organism (principal); U09.9 Post COVID-19 condition, unspecified; J84.10 Pulmonary fibrosis, unspecified; J96.01 Acute respiratory failure with hypoxia; I26.99 Other pulmonary embolism without acute cor pulmonale; Z20.822 Contact with and (suspected) exposure to COVID-19; B97.81 Human metapneumovirus as the cause of diseases classified elsewhere; M19.90 Unspecified osteoarthritis, unspecified site; H54.7 Unspecified visual loss; Z79.4 Long term (current) use of insulin; Z79.899 Other long term (current) drug therapy
CPT/HCPCS: 0240U; 36415; 71045; 71045-26; 80048; 80053; 82947; 83605; 83880; 84145; 85025; 87040; 87486; 87581; 87633; 87798; 94640; A9270-GY; J0456; J0696; J1815-GY; J2405; J3490; J3535-GY; J7050; J7620-GY

== ENCOUNTER 2023-11-27 09:35 | Inpatient (IN) | payer BC ==
[2023-11-27 09:59] LABS: BASOPHILS ABSOLUTE AUTO 0.07 K/uL (0.00-0.20); BASOPHILS PERCENT AUTO 0.5 % (0.0-1.0); HEMATOCRIT 44.9 % (42.0-52.0); HEMOGLOBIN 14.6 g/dL (14.0-18.0); IMMATURE GRAN ABSOLUTE AUTO 0.03 K/uL (0.00-0.05); IMMATURE GRAN PERCENT AUTO 0.2 % (0.0-0.4); LYMPHOCYTES ABSOLUTE AUTO 2.68 K/uL (1.00-4.80); MEAN CORPUSCULAR HGB CONC 32.5 g/dL (32.0-36.0); MEAN CORPUSCULAR VOLUME 83.1 fL (83.0-99.0); MEAN PLATELET VOLUME 10.3 fL (9.4-12.4); MONOCYTES ABSOLUTE AUTO 1.31 K/uL (0.00-0.80); MONOCYTES PERCENT AUTO 9.8 % (0.0-8.0); NEUTROPHILS ABSOLUTE AUTO 8.89 K/uL (1.80-7.70); NEUTROPHILS PERCENT AUTO 66.5 % (41.0-71.0); PLATELET COUNT,PLT 285 K/uL (150-400); WHITE BLOOD CELL COUNT,WBC 13.38 K/uL (3.9-11.3)
[2023-11-27 10:21] LABS: A/G RATIO 0.8 (0.9-1.6); ALBUMIN 3.3 g/dL (3.4-5.0); CALCIUM 9.2 mg/dL (8.5-10.1); CARBON DIOXIDE,CO2 28.1 mmol/L (21.0-32.0); CREATININE 1.6 mg/dL (0.8-1.3); EST CRCL DRUG DOSING (CG) 51.64 mL/min; POTASSIUM,K 4.1 mmol/L (3.5-5.1); PROTEIN TOTAL,TP 7.5 g/dL (6.4-8.2)
[2023-11-27] MEDS: Sodium Chloride 0.9% 10 ML Syringe FLUSH PRN (10:46)
[2023-11-27] MEDS: Sodium Chloride 0.9% 2.5 ML Syringe FLUSH PRN (10:46)
[2023-11-27 11:04] LABS: CORONAVIRUS COVID-19 NAA NEGATIVE (NEGATIVE); INFLUENZA A NAA NEGATIVE (NEGATIVE); INFLUENZA B NAA NEGATIVE (NEGATIVE); RESPIRATORY SYNCYTIAL VIR NAA NEGATIVE (NEGATIVE)
[2023-11-27] MEDS: cefTRIAXone 1 GM in Sodium Chloride 0.9% 50 ML IV ONE (13:01)
[2023-11-27] MEDS ORDERED: Ondansetron 4 MG/2 ML SDV IVPUSH PRN (13:28)
[2023-11-27] MEDS ORDERED: Acetaminophen 325 MG Tab PO PRN (13:28)
[2023-11-27] MEDS ORDERED: Sodium Chloride 0.9% 2.5 ML Syringe FLUSH PRN (13:28)
[2023-11-27] MEDS ORDERED: Sodium Chloride 0.9% 10 ML Syringe FLUSH PRN (13:28)
[2023-11-27] MEDS ORDERED: 50% Dextrose in Water 50 ML Syringe IVPUSH PRN (13:34)
[2023-11-27] MEDS ORDERED: Glucagon,Human Recombinant 1 MG Vial IM PRN (13:34)
[2023-11-27] MEDS: Azithromycin 500 MG in Sodium Chloride 0.9% 250 ML IV ONE (13:47)
[2023-11-27] MEDS ORDERED: Cyclobenzaprine 10 MG Tab PO PRN (14:00)
[2023-11-27] MEDS ORDERED: Albuterol/Ipratropium 3.0-0.5 MG/3 ML Neb Soln NEB PRN (14:00)
[2023-11-27] MEDS: methylPREDNISolone Sodium Succinate 125 MG/2 ML SDV IVPUSH SCH ×2 (15:31→15:48)
[2023-11-27] MEDS: Codeine/Promethazine 10-6.25 MG/5 ML Syrup 5 ML UD Syringe PO SCH ×2 (15:31→15:48)
[2023-11-27] MEDS: Iopamidol 755 MG/ML 500 ML Multipack Bottle IVPUSH ONE (16:26)
[2023-11-27] MEDS: Albuterol/Ipratropium 3.0-0.5 MG/3 ML Neb Soln NEB SCH ×2 (16:35→16:36)
[2023-11-27] MEDS: Insulin Aspart 100 Units/ML 3 ML Pen SUBCUT SCH (17:02)
[2023-11-27] MEDS ORDERED: Non-Formulary Medication 1 Each (Rivaroxaban [Xarelto] 20 MG Tablet) PO SCH (17:30)
[2023-11-27] MEDS ORDERED: Meclizine 25 MG Tab PO ONE (18:41)
[2023-11-27] MEDS: Budesonide 0.5 MG/2 ML Neb Susp NEB SCH (21:18)
[2023-11-27] MEDS: Insulin Glargine,Hum.Rec.Anlog 100 UNIT/ML 3 ML Pen SUBCUT SCH (21:30)
[2023-11-28 05:56] LABS: BASOPHILS ABSOLUTE AUTO 0.01 K/uL (0.00-0.20); BASOPHILS PERCENT AUTO 0.1 % (0.0-1.0); EOSINOPHILS ABSOLUTE AUTO 0.02 K/uL (0.00-0.45); EOSINOPHILS PERCENT AUTO 0.2 % (0.0-6.0); HEMATOCRIT 44.8 % (42.0-52.0); HEMOGLOBIN 14.6 g/dL (14.0-18.0); IMMATURE GRAN ABSOLUTE AUTO 0.04 K/uL (0.00-0.05); IMMATURE GRAN PERCENT AUTO 0.3 % (0.0-0.4); LYMPHOCYTES ABSOLUTE AUTO 0.81 K/uL (1.00-4.80); MEAN CORPUSCULAR HEMOGLOBIN 27.4 pg (28.0-32.0); MEAN CORPUSCULAR HGB CONC 32.6 g/dL (32.0-36.0); MEAN CORPUSCULAR VOLUME 84.2 fL (83.0-99.0); MEAN PLATELET VOLUME 10.9 fL (9.4-12.4); MONOCYTES ABSOLUTE AUTO 0.18 K/uL (0.00-0.80); MONOCYTES PERCENT AUTO 1.6 % (0.0-8.0); NEUTROPHILS ABSOLUTE AUTO 10.53 K/uL (1.80-7.70); NEUTROPHILS PERCENT AUTO 90.8 % (41.0-71.0); PLATELET COUNT,PLT 281 K/uL (150-400); RED BLOOD CELL COUNT 5.32 M/uL (4.52-5.90); WHITE BLOOD CELL COUNT,WBC 11.59 K/uL (3.9-11.3)
[2023-11-28 06:20] LABS: CALCIUM 9.9 mg/dL (8.5-10.1); CARBON DIOXIDE,CO2 25.9 mmol/L (21.0-32.0); CREATININE 1.7 mg/dL (0.8-1.3); EST CRCL DRUG DOSING (CG) 48.6 mL/min; MAGNESIUM 2.5 mg/dL (1.8-2.4); POTASSIUM,K 4.9 mmol/L (3.5-5.1)
[2023-11-28] MEDS: Pantoprazole 40 MG Tab.CR PO SCH (08:10)
[2023-11-28] MEDS: Furosemide 40 MG Tab PO SCH (09:05)
[2023-11-28] MEDS: cefTRIAXone 1 GM in Sodium Chloride 0.9% 50 ML IV SCH (09:06)
[2023-11-28] MEDS: Rivaroxaban 10 MG Tab PO SCH (09:06)
[2023-11-28] MEDS: Azithromycin 500 MG in Sodium Chloride 0.9% 250 ML IV SCH (10:01)
[2023-11-28] MEDS: Insulin Aspart 100 Units/ML 3 ML Pen SUBCUT SCH (11:46)
[2023-11-28 20:06] LABS: BORDETELLA PARAPERT IS1001 Not Detected (Not Detected)
[2023-11-30 06:46] LABS: BASOPHILS ABSOLUTE AUTO 0.03 K/uL (0.00-0.20); BASOPHILS PERCENT AUTO 0.1 % (0.0-1.0); HEMATOCRIT 43.9 % (42.0-52.0); HEMOGLOBIN 14.2 g/dL (14.0-18.0); IMMATURE GRAN ABSOLUTE AUTO 0.14 K/uL (0.00-0.05); IMMATURE GRAN PERCENT AUTO 0.6 % (0.0-0.4); LYMPHOCYTES ABSOLUTE AUTO 1.31 K/uL (1.00-4.80); LYMPHOCYTES PERCENT AUTO 5.7 % (24.0-44.0); MEAN CORPUSCULAR HEMOGLOBIN 26.8 pg (28.0-32.0); MEAN CORPUSCULAR HGB CONC 32.3 g/dL (32.0-36.0); MEAN PLATELET VOLUME 10.4 fL (9.4-12.4); MONOCYTES ABSOLUTE AUTO 0.64 K/uL (0.00-0.80); MONOCYTES PERCENT AUTO 2.8 % (0.0-8.0); NEUTROPHILS ABSOLUTE AUTO 20.95 K/uL (1.80-7.70); NEUTROPHILS PERCENT AUTO 90.8 % (41.0-71.0); PLATELET COUNT,PLT 312 K/uL (150-400); RED BLOOD CELL COUNT 5.29 M/uL (4.52-5.90); WHITE BLOOD CELL COUNT,WBC 23.07 K/uL (3.9-11.3)
[2023-11-30 07:06] LABS: CALCIUM 9.3 mg/dL (8.5-10.1); CARBON DIOXIDE,CO2 27.4 mmol/L (21.0-32.0); CREATININE 1.5 mg/dL (0.8-1.3); EST CRCL DRUG DOSING (CG) 55.08 mL/min; POTASSIUM,K 5.3 mmol/L (3.5-5.1)
[2023-11-30] MEDS: methylPREDNISolone Sodium Succinate 125 MG/2 ML SDV IVPUSH SCH (18:05)
[2023-12-01 06:16] LABS: BASOPHILS ABSOLUTE AUTO 0.02 K/uL (0.00-0.20); BASOPHILS PERCENT AUTO 0.1 % (0.0-1.0); HEMATOCRIT 42.8 % (42.0-52.0); HEMOGLOBIN 13.9 g/dL (14.0-18.0); IMMATURE GRAN ABSOLUTE AUTO 0.09 K/uL (0.00-0.05); IMMATURE GRAN PERCENT AUTO 0.5 % (0.0-0.4); LYMPHOCYTES ABSOLUTE AUTO 1.39 K/uL (1.00-4.80); LYMPHOCYTES PERCENT AUTO 7.8 % (24.0-44.0); MEAN CORPUSCULAR HEMOGLOBIN 27.1 pg (28.0-32.0); MEAN CORPUSCULAR HGB CONC 32.5 g/dL (32.0-36.0); MEAN CORPUSCULAR VOLUME 83.4 fL (83.0-99.0); MEAN PLATELET VOLUME 10.6 fL (9.4-12.4); MONOCYTES PERCENT AUTO 4.5 % (0.0-8.0); NEUTROPHILS ABSOLUTE AUTO 15.59 K/uL (1.80-7.70); NEUTROPHILS PERCENT AUTO 87.1 % (41.0-71.0); PLATELET COUNT,PLT 299 K/uL (150-400); RED BLOOD CELL COUNT 5.13 M/uL (4.52-5.90); WHITE BLOOD CELL COUNT,WBC 17.89 K/uL (3.9-11.3)
[2023-12-01 06:36] LABS: CALCIUM 9.2 mg/dL (8.5-10.1); CARBON DIOXIDE,CO2 29.2 mmol/L (21.0-32.0); CREATININE 1.4 mg/dL (0.8-1.3); EST CRCL DRUG DOSING (CG) 59.01 mL/min; MAGNESIUM 2.5 mg/dL (1.8-2.4)
[2023-12-01 13:06] VITALS: BP 144/88; PULSE 88
== END 2023-12-01 12:45 | disposition home or self-care (01) | DRG 139 ==
LOC: MW.ED 09:35 → MW.MS 12:35
PROVIDERS: ADMIT Internal Medicine; ATTEND Internal Medicine
DX: J18.9 Pneumonia, unspecified organism (principal); J96.21 Acute and chronic respiratory failure with hypoxia; U09.9 Post COVID-19 condition, unspecified; E11.9 Type 2 diabetes mellitus without complications; F41.9 Anxiety disorder, unspecified; M19.90 Unspecified osteoarthritis, unspecified site; E66.9 Obesity, unspecified; Z11.52 Encounter for screening for COVID-19; Z86.711 Personal history of pulmonary embolism; Z79.4 Long term (current) use of insulin; Z79.01 Long term (current) use of anticoagulants; Z97.3 Presence of spectacles and contact lenses; Z68.37 Body mass index [BMI] 37.0-37.9, adult; Z99.81 Dependence on supplemental oxygen; Z79.899 Other long term (current) drug therapy
CPT/HCPCS: 0241U; 36415; 71275; 71275-26; 80048; 80053; 82947; 83735; 83880; 84484; 85025; 87486; 87581; 87633; 93010; 94640; 94667; 99285; A9270-GY; J0456; J0696; J1815-GY; J2930; J3490; J3535-GY; J7050; J7620-GY; Q9967

== ENCOUNTER 2024-07-02 09:10 | Observation (INO) | payer MEDICARE, BC ==
[2024-07-02] MEDS ORDERED: Sodium Chloride 0.9% 10 ML Syringe FLUSH PRN (09:23)
[2024-07-02 10:04] LABS: CORONAVIRUS COVID-19 NAA NEGATIVE (NEGATIVE); INFLUENZA A NAA NEGATIVE (NEGATIVE); INFLUENZA B NAA NEGATIVE (NEGATIVE); RESPIRATORY SYNCYTIAL VIR NAA NEGATIVE (NEGATIVE)
[2024-07-02 10:14] LABS: BASE EXCESS VENOUS 5.3 (-2.0-3.0); BASOPHILS ABSOLUTE AUTO 0.03 K/uL (0.00-0.20); BASOPHILS PERCENT AUTO 0.2 % (0.0-1.0); BICARBONATE,VENOUS 31 mEQ/mL (22-28); EOSINOPHILS ABSOLUTE AUTO 0.12 K/uL (0.00-0.45); HEMATOCRIT 41.5 % (42.0-52.0); HEMOGLOBIN 13.5 g/dL (14.0-18.0); IMMATURE GRAN ABSOLUTE AUTO 0.03 K/uL (0.00-0.05); IMMATURE GRAN PERCENT AUTO 0.2 % (0.0-0.4); LYMPHOCYTES ABSOLUTE AUTO 2.36 K/uL (1.00-4.80); LYMPHOCYTES PERCENT AUTO 19.3 % (24.0-44.0); MEAN CORPUSCULAR HEMOGLOBIN 28.1 pg (28.0-32.0); MEAN CORPUSCULAR HGB CONC 32.5 g/dL (32.0-36.0); MEAN CORPUSCULAR VOLUME 86.5 fL (83.0-99.0); MEAN PLATELET VOLUME 10.2 fL (9.4-12.4); MONOCYTES ABSOLUTE AUTO 1.67 K/uL (0.00-0.80); MONOCYTES PERCENT AUTO 13.7 % (0.0-8.0); NEUTROPHILS ABSOLUTE AUTO 8.01 K/uL (1.80-7.70); NEUTROPHILS PERCENT AUTO 65.6 % (41.0-71.0); PCO2 VENOUS 47 mmHG (41-51); PH,VENOUS 7.43 (7.31-7.41); PLATELET COUNT,PLT 207 K/uL (150-400); WHITE BLOOD CELL COUNT,WBC 12.22 K/uL (3.9-11.3)
[2024-07-02 10:15] LABS: PO2 VENOUS < 30 mmHG (35-45)
[2024-07-02 10:34] LABS: INR 1.17 (0.86-1.11)
[2024-07-02 10:57] LABS: A/G RATIO 0.8 (0.9-1.6); ALBUMIN 3.1 g/dL (3.4-5.0); BILIRUBIN TOTAL 0.9 mg/dL (0.2-1.0); CALCIUM 8.9 mg/dL (8.5-10.1); CARBON DIOXIDE,CO2 31.9 mmol/L (21.0-32.0); CREATININE 1.6 mg/dL (0.8-1.3); EST CRCL DRUG DOSING (CG) 50.98 mL/min; POTASSIUM,K 4.4 mmol/L (3.5-5.1); PROTEIN TOTAL,TP 6.8 g/dL (6.4-8.2)
[2024-07-02] MEDS: Albuterol/Ipratropium 3.0-0.5 MG/3 ML Neb Soln NEB ONE (10:57)
[2024-07-02] MEDS: cefTRIAXone 2 GM in Sodium Chloride 0.9% 50 ML IV ONE (11:20)
[2024-07-02] MEDS: methylPREDNISolone Sodium Succinate 125 MG/2 ML SDV IVPUSH ONE (11:57)
[2024-07-02] MEDS: Azithromycin 500 MG in Sodium Chloride 0.9% 250 ML IV ONE (11:57)
[2024-07-02] MEDS ORDERED: Glucagon,Human Recombinant 1 MG Vial IM PRN (13:16)
[2024-07-02] MEDS ORDERED: 50% Dextrose in Water 50 ML Syringe IVPUSH PRN (13:16)
[2024-07-02] MEDS: Albuterol/Ipratropium 3.0-0.5 MG/3 ML Neb Soln NEB SCH (17:12)
[2024-07-02] MEDS: Insulin Aspart 100 Units/ML 3 ML Pen SUBCUT SCH (17:16)
[2024-07-02] MEDS: Rivaroxaban 10 MG Tab PO SCH (17:17)
[2024-07-02] MEDS: Insulin Glargine,Hum.Rec.Anlog 100 UNIT/ML 3 ML Pen SUBCUT SCH ×2 (19:51→21:00)
[2024-07-02] MEDS: Budesonide 0.5 MG/2 ML Neb Susp NEB SCH (21:00)
[2024-07-03 06:19] LABS: BASOPHILS ABSOLUTE AUTO 0.02 K/uL (0.00-0.20); BASOPHILS PERCENT AUTO 0.1 % (0.0-1.0); HEMATOCRIT 42.3 % (42.0-52.0); HEMOGLOBIN 13.6 g/dL (14.0-18.0); IMMATURE GRAN ABSOLUTE AUTO 0.05 K/uL (0.00-0.05); IMMATURE GRAN PERCENT AUTO 0.4 % (0.0-0.4); LYMPHOCYTES ABSOLUTE AUTO 1.11 K/uL (1.00-4.80); LYMPHOCYTES PERCENT AUTO 8.1 % (24.0-44.0); MEAN CORPUSCULAR HEMOGLOBIN 27.8 pg (28.0-32.0); MEAN CORPUSCULAR HGB CONC 32.2 g/dL (32.0-36.0); MEAN CORPUSCULAR VOLUME 86.3 fL (83.0-99.0); MEAN PLATELET VOLUME 10.4 fL (9.4-12.4); MONOCYTES PERCENT AUTO 7.3 % (0.0-8.0); NEUTROPHILS ABSOLUTE AUTO 11.54 K/uL (1.80-7.70); NEUTROPHILS PERCENT AUTO 84.1 % (41.0-71.0); PLATELET COUNT,PLT 224 K/uL (150-400); WHITE BLOOD CELL COUNT,WBC 13.72 K/uL (3.9-11.3)
[2024-07-03 06:41] LABS: CALCIUM 9.2 mg/dL (8.5-10.1); CARBON DIOXIDE,CO2 29.4 mmol/L (21.0-32.0); CREATININE 1.4 mg/dL (0.8-1.3); EST CRCL DRUG DOSING (CG) 58.27 mL/min; POTASSIUM,K 4.2 mmol/L (3.5-5.1)
[2024-07-03] MEDS: Pantoprazole 40 MG Tab.CR PO SCH (06:56)
[2024-07-03] MEDS ORDERED: predniSONE 20 MG Tab PO SCH (08:00)
[2024-07-03 09:35] LABS: LACTIC ACID 1.8 mmol/L (0.4-2.0)
[2024-07-03] MEDS ORDERED: 50% Dextrose in Water 50 ML Syringe IVPUSH PRN (10:31)
[2024-07-03] MEDS ORDERED: Glucagon,Human Recombinant 1 MG Vial IM PRN (10:31)
[2024-07-03] MEDS: Azithromycin 500 MG in Sodium Chloride 0.9% 250 ML IV SCH (11:00)
[2024-07-03] MEDS: cefTRIAXone 2 GM in Sodium Chloride 0.9% 50 ML IV SCH (11:00)
[2024-07-03] MEDS: predniSONE 10 MG Tab PO SCH (11:18)
[2024-07-03] MEDS: Insulin Aspart 100 Units/ML 3 ML Pen SUBCUT SCH (11:30)
[2024-07-03 13:56] VITALS: BP 125/88; PULSE 78
== END 2024-07-03 13:56 | disposition home or self-care (01) ==
LOC: MW.ED 09:10 → MW.MS 11:22
PROVIDERS: ADMIT Internal Medicine; ATTEND Internal Medicine
DX: J18.9 Pneumonia, unspecified organism (principal); E66.9 Obesity, unspecified; R05.3 Chronic cough; R09.02 Hypoxemia; R06.02 Shortness of breath; R06.82 Tachypnea, not elsewhere classified; Z86.16 Personal history of COVID-19; Z87.09 Personal history of other diseases of the respiratory system; Z79.4 Long term (current) use of insulin; Z79.899 Other long term (current) drug therapy; Z79.2 Long term (current) use of antibiotics; Z68.30 Body mass index [BMI] 30.0-30.9, adult; Z20.822 Contact with and (suspected) exposure to COVID-19
CPT/HCPCS: 0241U; 36415; 71046; 80048; 80053; 82803; 82947; 83605; 83735; 83880; 85025; 85610; 87040; 93005; 94640; 96365; 96366; 96367; 96375; 99285; A9270; J0456; J0696; J1815; J2919; J3490; J7050; 87070; 87205; G0378; J3535-GY; J7620-GY

== ENCOUNTER 2024-09-05 19:41 | Observation (INO) | payer BC, MEDICARE ==
[2024-09-05] MEDS ORDERED: Sodium Chloride 0.9% 10 ML Syringe FLUSH PRN (19:42)
[2024-09-05] MEDS: 50% Dextrose in Water 50 ML Syringe ONE (19:59)
[2024-09-05 20:02] LABS: BASOPHILS ABSOLUTE AUTO 0.03 K/uL (0.00-0.20); BASOPHILS PERCENT AUTO 0.4 % (0.0-1.0); EOSINOPHILS PERCENT AUTO 1.2 % (0.0-6.0); HEMATOCRIT 40.9 % (42.0-52.0); HEMOGLOBIN 13.4 g/dL (14.0-18.0); IMMATURE GRAN ABSOLUTE AUTO 0.02 K/uL (0.00-0.05); IMMATURE GRAN PERCENT AUTO 0.2 % (0.0-0.4); LYMPHOCYTES ABSOLUTE AUTO 2.53 K/uL (1.00-4.80); LYMPHOCYTES PERCENT AUTO 29.7 % (24.0-44.0); MEAN CORPUSCULAR HEMOGLOBIN 28.8 pg (28.0-32.0); MEAN CORPUSCULAR HGB CONC 32.8 g/dL (32.0-36.0); MONOCYTES ABSOLUTE AUTO 0.73 K/uL (0.00-0.80); MONOCYTES PERCENT AUTO 8.6 % (0.0-8.0); NEUTROPHILS PERCENT AUTO 59.9 % (41.0-71.0); PLATELET COUNT,PLT 252 K/uL (150-400); RED BLOOD CELL COUNT 4.65 M/uL (4.52-5.90); WHITE BLOOD CELL COUNT,WBC 8.51 K/uL (3.9-11.3)
[2024-09-05] MEDS: 50% Dextrose in Water 50 ML Syringe IVPUSH STA ×2 (20:02→22:13)
[2024-09-05] MEDS: Ondansetron 4 MG/2 ML SDV IVPUSH ONE (20:02)
[2024-09-05] MEDS: Morphine 4 MG/ML Syringe IVPUSH ONE (20:02)
[2024-09-05 20:16] LABS: INR 1.28 (0.86-1.11)
[2024-09-05 20:19] LABS: HEMOGLOBIN A1C 5.7 %
[2024-09-05 21:01] LABS: A/G RATIO 1.1 (0.9-1.6); ALANINE AMINOTRANSFERASE,ALT 46 IU/L (14-63); ALBUMIN 3.5 g/dL (3.4-5.0); ALKALINE PHOSPHATASE 75 U/L (46-116); ASPARTATE AMNIOTRANSFERASE,AST 46 IU/L (15-37); BILIRUBIN TOTAL 0.5 mg/dL (0.2-1.0); BLOOD UREA NITROGEN,BUN 11 mg/dL (7.0-18.0); CARBON DIOXIDE,CO2 29.6 mmol/L (21.0-32.0); CHLORIDE,CL 104 mmol/L (98-107); CREATININE 1.4 mg/dL (0.8-1.3); GLUCOSE RANDOM 135 mg/dL (74-106); LIPASE 46 U/L (16-77); MAGNESIUM 1.8 mg/dL (1.8-2.4); PROTEIN TOTAL,TP 6.7 g/dL (6.4-8.2); SODIUM,NA 140 mmol/L (136-148)
[2024-09-05 21:02] LABS: ESTIMATED GFR 57 mL/min (>60)
[2024-09-05 21:21] LABS: PRO B-TYPE NATRIUR PEPT,BNPPRO 64 pg/mL (0-125)
[2024-09-05] MEDS ORDERED: Sodium Chloride 154 MEQ in Dextrose 10% in Water 1,000 ML IV SCH (22:15)
[2024-09-05] MEDS: Dextrose 5%-0.9% NaCl 1,000 ML IV SCH (23:59)
[2024-09-06 00:47] LABS: APPEARANCE,URINE CLEAR; BILIRUBIN,URINE NEGATIVE (NEGATIVE); COLOR,URINE YELLOW; GLUCOSE,URINE 100 mg/dL (NEGATIVE); KETONES,URINE NEGATIVE (NEGATIVE); LEUKOCYTE ESTERASE,URINE NEGATIVE (NEGATIVE); NITRITE,URINE NEGATIVE (NEGATIVE); OCCULT BLOOD,URINE NEGATIVE (NEGATIVE); PH,URINE 6.5 (5.0-8.0); PROTEIN,URINE NEGATIVE (NEGATIVE); UROBILINOGEN,URINE 0.2 EU/dL (<2.0)
[2024-09-06 06:48] LABS: BASOPHILS ABSOLUTE AUTO 0.03 K/uL (0.00-0.20); BASOPHILS PERCENT AUTO 0.4 % (0.0-1.0); EOSINOPHILS ABSOLUTE AUTO 0.21 K/uL (0.00-0.45); EOSINOPHILS PERCENT AUTO 2.7 % (0.0-6.0); HEMATOCRIT 42.2 % (42.0-52.0); HEMOGLOBIN 13.5 g/dL (14.0-18.0); IMMATURE GRAN ABSOLUTE AUTO 0.02 K/uL (0.00-0.05); IMMATURE GRAN PERCENT AUTO 0.3 % (0.0-0.4); LYMPHOCYTES ABSOLUTE AUTO 2.17 K/uL (1.00-4.80); LYMPHOCYTES PERCENT AUTO 28.2 % (24.0-44.0); MEAN CORPUSCULAR HEMOGLOBIN 28.4 pg (28.0-32.0); MEAN CORPUSCULAR VOLUME 88.8 fL (83.0-99.0); MEAN PLATELET VOLUME 9.7 fL (9.4-12.4); MONOCYTES ABSOLUTE AUTO 0.81 K/uL (0.00-0.80); MONOCYTES PERCENT AUTO 10.5 % (0.0-8.0); NEUTROPHILS ABSOLUTE AUTO 4.45 K/uL (1.80-7.70); NEUTROPHILS PERCENT AUTO 57.9 % (41.0-71.0); PLATELET COUNT,PLT 252 K/uL (150-400); RED BLOOD CELL COUNT 4.75 M/uL (4.52-5.90); WHITE BLOOD CELL COUNT,WBC 7.69 K/uL (3.9-11.3)
[2024-09-06 07:16] LABS: CALCIUM 8.8 mg/dL (8.5-10.1); CARBON DIOXIDE,CO2 30.7 mmol/L (21.0-32.0); CREATININE 1.4 mg/dL (0.8-1.3); EST CRCL DRUG DOSING (CG) 58.27 mL/min; POTASSIUM,K 3.8 mmol/L (3.5-5.1)
[2024-09-06] MEDS ORDERED: Iopamidol 755 Mg/ML 100 ML Bottle IVPUSH ONE (07:32)
[2024-09-06] MEDS ORDERED: Codeine/Promethazine 10-6.25 MG/5 ML Syrup 5 ML UD Syringe PO PRN (08:33)
[2024-09-06] MEDS ORDERED: ARFORMOTEROL 15 MCG/2 ML NEB SCH (09:00)
[2024-09-06] MEDS: Pantoprazole 40 MG Tab.CR PO SCH (09:03)
[2024-09-06] MEDS: predniSONE 10 MG Tab PO SCH (09:03)
[2024-09-06] MEDS: Furosemide 40 MG Tab PO SCH (09:03)
[2024-09-06] MEDS: Budesonide 0.5 MG/2 ML Neb Susp NEB SCH (09:48)
[2024-09-06] MEDS: Insulin Glargine,Hum.Rec.Anlog 100 UNIT/ML 3 ML Pen SUBCUT STA (10:05)
[2024-09-06 12:31] VITALS: BP 122/78
[2024-09-06] MEDS: Albuterol/Ipratropium 3.0-0.5 MG/3 ML Neb Soln NEB SCH (13:51)
[2024-09-06 13:55] VITALS: PULSE 106
[2024-09-06] MEDS ORDERED: Rivaroxaban 10 MG Tab PO SCH (17:30)
== END 2024-09-06 15:30 | disposition home or self-care (01) ==
LOC: MW.ED 19:41 → MW.MS 23:14
PROVIDERS: ADMIT Internal Medicine; ATTEND Internal Medicine
DX: E11.649 Type 2 diabetes mellitus with hypoglycemia without coma (principal); S09.90XA Unspecified injury of head, initial encounter; R55 Syncope and collapse; E66.9 Obesity, unspecified; M54.50 Low back pain, unspecified; Z79.899 Other long term (current) drug therapy; Z86.16 Personal history of COVID-19; Z79.4 Long term (current) use of insulin; Z68.30 Body mass index [BMI] 30.0-30.9, adult; Z79.01 Long term (current) use of anticoagulants; Z86.711 Personal history of pulmonary embolism; W19.XXXA Unspecified fall, initial encounter
CPT/HCPCS: 36415; 70450; 71260; 72125; 72128; 72131; 74177; 80048; 80053; 81003; 82947; 83036; 83605; 83690; 83735; 83880; 84484; 85025; 85610; 93005; 94640; 96361; 96374; 96375; 96376; 99285; A9270; G0378; J2270; J2405; J7042; J3490; J3535-GY; J7620-GY

== ENCOUNTER 2025-08-12 05:40 | Emergency (ER) | payer BC, MEDICARE ==
[2025-08-12 05:53] VITALS: BP 117/76
[2025-08-12 06:27] VITALS: PULSE 78
[2025-08-12 07:34] LABS: LACTIC ACID 2.6 mmol/L (0.4-2.0)
== END 2025-08-12 08:29 | disposition home or self-care (01) ==
LOC: MW.ED 05:40
DX: E16.2 Hypoglycemia, unspecified (principal); Z79.01 Long term (current) use of anticoagulants; Z79.899 Other long term (current) drug therapy
CPT/HCPCS: 36415; 82947; 83605; 99283; J7030